=== PATIENT | male | born 1940 | race Caucasian/White ===

== ENCOUNTER 2016-10-23 13:57 | Inpatient (IN) | payer MEDICARE ==
--- NOTE | ~2016-10-23 | DS ---
Discharge Summary [facility] [address] [place]. [address] NAME: HERMELINDA BOWDEN : 38 STATUS : DIS IN PAT#: [id number] AGE: 76 ADM/REG DATE : 10/23/16 MR#: [id number] REPORT SERV DATE: 10/28/16 DICTATED BY: CARTER TILLMAN DATE: 10/27/16 REPORT STATUS : Draft TRANSCRIBED BY: MODL DATE: 10/27/16 ADMISSION DATE: 10/23/2016 DISCHARGE DATE: 10/27/2016 DISCHARGE DIAGNOSES: 1. Atrial fibrillation with rapid ventricular response, currently stable. 2. Acute exacerbation of chronic obstructive pulmonary disease. 3. Acute hypoxic respiratory failure, present on admission, on chronic hypoxic respiratory failure. 4. History of non-small cell lung cancer. 5. History of monoclonal gammopathy of unknown significance. 6. Gastroesophageal reflux. 7. Prostate cancer, status post radiation therapy. 8. Hypertension. 9. Restless leg syndrome. CONSULTANTS DURING THIS HOSPITALIZATION: Dr. Alex Hunt of [facility] Cardiology with Dr. Kavon Hensley. INVASIVE PROCEDURES DONE DURING THIS HOSPITALIZATION: None. BRIEF HISTORY OF PRESENT ILLNESS: The patient is a 76-year-old male, presented with cough productive sputum, increasing shortness of breath for six days, so he was admitted. For detailed history and physical exam, please see note dictated by Dr. Payton Rivera on 10/23/2016. HOSPITAL COURSE: After being admitted to the hospital, this patient was given aggressive nebulizing treatments thinking that he may have pneumonia. He was given broad-spectrum antibiotics. Dr. Coronado followed the patient in followup. He was noted to have atrial fibrillation with rapid ventricular response. Cardiology saw the patient in consultation. Two-dimensional echocardiogram was done. No evidence of any significant valvular disease or atrial enlargement was noted. He had a normal ejection fraction. He was placed on p.o. Lopressor and his Cardizem was continued. Anticoagulation was recommended because of [id number] score of 5. This patient has been placed on Coumadin. Dr. Hensley has signed off his care and recommended that he can continue Coumadin and follow up in the outpatient setting. This patient's COPD has significantly improved and his hypoxia is now at baseline. He feels well enough that he could be discharged in the home setting. DISCHARGE DISPOSITION: Home. DISCHARGE ACTIVITY: As tolerated. DISCHARGE DIET: Low sodium diet. DISCHARGE MEDICATIONS: Aspirin 81 mg once daily, vitamin B12 of 5000 mcg once daily, Zantac 300 mg once at bedtime, diltiazem 180 mg CD once daily, warfarin 5 mg once daily, prednisone Discharge Summary [address] [place]. [address] NAME: HERMELINDA BOWDEN : 39 STATUS : DIS IN PAT#: [id number] AGE: 76 ADM/REG DATE : 10/23/16 MR#: [id number] REPORT SERV DATE: 10/28/16 DICTATED BY: CARTER TILLMAN DATE: 10/27/16 REPORT STATUS : Draft TRANSCRIBED BY: REGINA DATE: 10/27/16 40 mg p.o. once daily for five days, Metamucil 15 mL p.o. daily and p.r.n. for constipation, Spiriva one capsule inhalation once at bedtime, Breo Ellipta one puff every morning, DuoNebs one neb twice daily, MD Nicholas suspension as needed, hydrocodone 10/325 one tablet daily p.r.n., albuterol two puffs up to six times daily p.r.n., Rhinocort nasal spray one spray each nostril twice daily p.r.n., artificial tears one drop, hormone injection one dose IM every 180 days, i.e., Lupron for prostate cancer, analgesic patch for the forehead. DISCHARGE FOLLOWUP: With Dr. Nilay Harp in two days for repeat PT/INR and adjustment of Coumadin. Follow up with Dr. Kavon Hensley at [facility] in about one month. More than 30 minutes spent planning this patient's discharge, reconciling medications, writing prescriptions, discussing hospital care, followup with the patient, and documenting this discharge. DICTATED BY: Ashley Martinez/REGINA Carter Tillman M.D. / [id number] CC: Ashley Martinez M.D. William Oellerich, M.D., Ph.D, F.A.C.C.
--- NOTE | ~2016-10-23 | HP ---
History And Physical [facility] [address] [facility] [place]. [address] NAME: HERMELINDA BOWDEN : 39 STATUS : ADM IN [facility]#: [id number] AGE: 76 ADM/REG DATE : 10/23/16 MR#: [id number] REPORT SERV DATE: 10/23/16 DICTATED BY: PAYTON CHUNG DATE: 10/23/16 REPORT STATUS : Draft TRANSCRIBED BY: MODL DATE: 10/23/16 DATE OF ADMISSION: 10/23/2016 CHIEF COMPLAINT: Cough, productive sputum, increasing shortness of breath for six days. HISTORY OF PRESENT ILLNESS: This is a very pleasant 76-year-old gentleman. He does have a history of non-small cell lung cancer of the right upper lobe with radiation treatment. Prior radiation treatment about two years ago. Currently, on no radiation. Also, history of prostate cancer, recurrent right now currently on hormone treatment. He does have a history of hypertension, history of GERD with prior Mela fundoplication, history of restless legs syndrome, history of bronchitis, and prior history of pneumonia, presenting today to [facility] after he has been sent from a Walk-In Clinic, where he went today with mainly complains of shortness of breath. According to the patient, the symptoms have been started about six days ago. He saw his primary care provider, Dr. Nilay Harp, who gave him a steroid short and put him on Levaquin, but symptoms has not improved. Actually, he takes azithromycin every other day per Dr. Gilliam recommendation like a prevention for bronchitis and also nebulizer treatment, but this did not help him. His shortness of breath got still persistent and more so over the last few days, and as a result, he presented today to a Walk-In Clinic, where he was told that he has pneumonia and he has been referred to [facility]. It is important to note that he has COPD and he says asthma, but he has not had pneumonia recently. He has been seen by Dr. Hensley in the past. It is unclear why he said that he had a cardiac workup with negative stress test. He admits that he had some productive yellowish sputum. No hemoptysis. He did not have any PND or orthopnea. He did not experience any palpitations and no abdominal pain. No nausea or vomiting. No diarrhea or constipation. No increased urinary frequency or urgency. No other complaints. The patient has been evaluated in the emergency room and Hospitalist Service has been asked for admission, further evaluation, and treatment. PAST MEDICAL HISTORY: Significant with COPD; emphysema; asthma; non-small cell lung cancer of the right upper lobe, status post radiation treatment; history of hypertension; prostate cancer, recurrent; GERD with Mela fundoplication; restless legs syndrome; degenerative joint disease and osteoarthritis; prior history of hematochezia. PAST SURGICAL HISTORY: Include right thumb surgery, Mela fundoplication, left total knee replacement, C-spine surgery, carpal tunnel release, bilateral ankle surgery, cholecystectomy. SOCIAL HISTORY: He is . He does not smoke. He used to smoke two packs a day for more than 30 years, but he quit over 20 years ago. Alcohol, occasional. No IV drugs. FAMILY HISTORY: Significant for cancer. He is allergic to penicillin, sulfa, and tetracycline. MEDICATIONS: At home include DuoNeb, Ventolin, Artificial Tears, aspirin, Zithromax every other day, vitamin B12, Breo Ellipta, Louann, Motrin, Levaquin, Singulair, multivitamin, Protonix, Metamucil, Zantac, Spiriva, hormone injection, and analgesic History And Physical [address] [address] NAME: HERMELINDA BOWDEN : 38 STATUS : ADM IN [facility]#: [id number] AGE: 76 ADM/REG DATE : 10/23/16 MR#: [id number] REPORT SERV DATE: 10/23/16 DICTATED BY: PAYTON CHUNG DATE: 10/23/16 REPORT STATUS : Draft TRANSCRIBED BY: MODL DATE: 10/23/16 [id number]. REVIEW OF SYSTEMS: A 14-point review of systems has been obtained and pertinent positive has been listed into the history of present illness. Otherwise, negative except those underlying above. PHYSICAL EXAMINATION: VITAL SIGNS: Currently, the patient is afebrile. Blood pressure 140/79, heart rate on arrival 121, respiratory rate 18, saturating 93% on room air. GENERAL: He is a very pleasant, well-developed, well-nourished gentleman, in no acute distress. Currently, he is alert and oriented x3. Nonfocal. He follows all his commands appropriately. HEENT: Pupils are equal, round, reactive to light. Extraocular movements intact. No JVD. No lymphadenopathy. No thyromegaly appreciated. CHEST: Bilateral air entry. Clear anteroposterior. No wheezes, crackles, or rhonchi appreciated. CARDIOVASCULAR: Irregularly irregular. S1, S2 positive. No S3, no S4. No murmurs, rubs, or gallops appreciated. ABDOMEN: Soft. Positive bowel sounds. Nontender. No guarding. No rebound. EXTREMITIES: No clubbing, cyanosis, or edema. NEUROLOGIC: He is alert and oriented x3. He is nonfocal. He follows all his commands appropriately. LABORATORY DATA: Labs from today include sodium 140, potassium 4.3 chloride 105, CO2 of 30, BUN 20, creatinine 0.91, glucose is 129. His total bilirubin is 0.5, alkaline phosphatase is 74, ALT 34, AST 19. His troponin is less than 0.02. BNP of 122.9. His white count is 7.1, hemoglobin 14.5, hematocrit 45.1, and platelets are 199. His INR is 1. His blood cultures currently are pending. His EKG shows AFib with rapid ventricular response. His chest x-ray, portable, performed in the emergency room shows some chronic changes, some scaring especially on the right. ASSESSMENT: This is a very pleasant, 76-year-old gentleman, presenting with increasing shortness of breath, cough, productive sputum with 1. Likely chronic obstructive pulmonary disease exacerbation. 2. Atrial fibrillation with rapid ventricular response. 3. History of lung cancer, status post radiation treatment in 2014 only. 4. Recurrent prostate cancer. 5. History of gastroesophageal reflux disease. 6. Degenerative joint disease, osteoarthritis. PLAN: 1. The patient is going to be admitted to Hospitalist Service. We are going to place him on oxygen, antibiotics with Rocephin and azithromycin, place him on steroids, nebulizer treatment, Mucinex. We will check a procalcitonin level, sputum Gram stain, and culture. We will get a CAT scan of the chest without contrast in the morning as well. We are going to follow up his blood culture. Continue his Breo Ellipta as well and his Singulair. History And Physical [place] [address] [place]. [address] NAME: HERMELINDA BOWDEN : 39 STATUS : ADM IN PAT#: [id number] AGE: 76 ADM/REG DATE : 10/23/16 MR#: [id number] REPORT SERV DATE: 10/23/16 DICTATED BY: PAYTON CHUNG DATE: 10/23/16 REPORT STATUS : Draft TRANSCRIBED BY: MODL DATE: 10/23/16 2. AFib with RVR. We are going to place him on oral Cardizem as well as Cardizem p.r.n., heparin drip. We are going to check 2D echo. Rule him out for NC by serial cardiac enzymes, serial EKGs, and consult Dr. Hensley per patient and family request. 3. Hypertension. We are going to continue Cardizem, provide p.r.n. hydralazine as needed. 4. History of lung cancer. We are going to check CT of the chest without contrast in the morning and continue to treat his COPD exacerbation. 5. History of GERD. We are going to continue his home medications. 6. Degenerative joint disease, osteoarthritis. We are going to continue his home medication. Also, we are going to provide reasonable pain, nausea control as well as GI and DVT prophylaxis with SCDs that has been discussed extensively with the patient as well as the patient's . All the questions have been answered in full. Further workup and recommendation pending above. It is worthwhile to note that the patient is going to be followed up by Hospitalist Service. CF/RADHAL Payton Chung M.D. / [id number] CC: Ashley Clark M.D.
--- NOTE | ~2016-10-23 | CN ---
Consultation Report [place] [id number] [facility] [place]. [address] NAME: HERMELINDA DECKER : 39 STATUS : ADM IN PAT#: [id number] AGE: 76 ADM/REG DATE : 10/23/16 MR#: [id number] REPORT SERV DATE: 10/23/16 DICTATED BY: ALEX BUTCHER DATE: 10/23/16 REPORT STATUS : Draft TRANSCRIBED BY: MODL DATE: 10/23/16 CARDIOLOGY CONSULT DATE OF CONSULTATION: 10/23/2016 PRIMARY MULTIPLE SLIDE OPERATOR: The patient's primary liquefaction plant operator is Dr. Hensley. CONSULTATION REASON: Atrial fibrillation. HISTORY OF PRESENT ILLNESS: Mr. Decker is a 76-year-old male with severe COPD and a history of treated right upper lobe lung cancer who has had community-acquired pneumonia for the past six to seven days and has been failing outpatient oral Levaquin with persistent shortness of breath, cough, and fatigue. He presented to the ED for further evaluation where he was noted to be in atrial fibrillation with rapid ventricular response and a heart rate of 110 beats per minute. He was given medicines for acute exacerbation of COPD and admitted to the Hospitalist Service. He has had no symptoms of chest pain or angina. He denies palpitations or syncope. He has had no orthopnea or edema. He is now resting comfortably with no complaints. REVIEW OF SYSTEMS: Pertinent positives and negatives as outlined above, all else negative. PAST MEDICAL HISTORY: 1. COPD, severe. 2. History of lung cancer, treated with XRT and chemotherapy. 3. History of atypical chest pain, negative dobutamine stress test, October 2014. 4. History of TIA. CURRENT HOME MEDICATIONS: Include, 1. DuoNeb as directed. 2. Albuterol inhaler as directed. 3. Aspirin 81 mg daily. 4. Levaquin for the past six days. 5. Zithromax for the past six days. 6. B12 supplementation. 7. Breo Ellipta inhaler as directed. 8. [place] as directed. 9. Singulair 10 mg daily. 10.Multivitamin daily. 11.Protonix 40 mg twice daily. 12.Fiber supplementation. 13.Zantac 300 mg at bedtime. 14.Spiriva inhaler as directed. Consultation Report [place] [id number] [facility] [place]. [address] NAME: HERMELINDA DECKER : 38 STATUS : ADM IN PAT#: [id number] AGE: 76 ADM/REG DATE : 10/23/16 MR#: [id number] REPORT SERV DATE: 10/23/16 DICTATED BY: ALEX BUTCHER DATE: 10/23/16 REPORT STATUS : Draft TRANSCRIBED BY: REGINA DATE: 10/23/16 ALLERGIES: INCLUDE PENICILLIN WHICH CAUSES HIVES AND SULFA THAT CAUSES HIVES. SOCIAL HISTORY: He does not use consume alcohol or use illegal drugs. He has remote history of tobacco use, but quit many years ago. FAMILY HISTORY: No significant family history of premature CAD or sudden . PHYSICAL EXAMINATION: VITALS: Temp is afebrile. Pulse 100. Respirations 16. BP is 140/80. GENERAL: Well-developed, chronically ill-appearing male, who is now currently in no acute distress. HEENT: Sclerae anicteric, mucous membranes moist and without lesions. NECK: No jugular venous distention. No hepatojugular reflux, carotid upstrokes 2+ and symmetric, there are no carotid or subclavian bruit. LUNGS: Severely decreased breath sounds throughout with diffuse expiratory wheezes. CARDIOVASCULAR: Irregularly irregular with distant S1 and S2. No audible S3. No audible murmurs. No parasternal lift. PMI is not palpable. ABDOMEN: Soft, nontender. Bowel sounds are positive and normoactive. PULSES: Radial and dorsalis pedis pulses are 2+ and symmetric. EXTREMITIES: Warm and there is no edema. SKIN: No clubbing or cyanosis, no rashes or lesions. ACCESSORY DATA: ECG on arrival, with atrial fibrillation rapid ventricular response at 112 beats per minute. No ST abnormalities seen. Initial labs with a creatinine of 0.9. Negative troponin. BNP nonspecific at 120. IMPRESSION: 1. Atrial fibrillation with rapid ventricular response. 2. History of transient ischemic attack. 3. Acute exacerbation of severe chronic obstructive pulmonary disease. 4. Community-acquired pneumonia, feeling outpatient antibiotics. 5. History of lung cancer, status post treatment. 6. History of chest pain with negative stress test, 2015. PLAN: 1. Oral Cardizem for rate control. 2. Eliquis for CVA prophylaxis. 3. Echocardiogram to reassess cardiac dimensions and function. No recommendation for aggressive rhythm control at this time. We will watch rate and rhythm on medical therapy as COPD exacerbation is treated. He is otherwise asymptomatic with respect to atrial fibrillation. Consultation Report [place] [id number] [facility] [place]. [address] NAME: HERMELINDA DECKER : 39 STATUS : ADM IN PAT#: [id number] AGE: 76 ADM/REG DATE : 10/23/16 MR#: [id number] REPORT SERV DATE: 10/23/16 DICTATED BY: ALEX BUTCHER DATE: 10/23/16 REPORT STATUS : Draft TRANSCRIBED BY: REGINA DATE: 10/23/16 AEA/REGINA Alex Butcher M.D. / [id number] CC: Ashley Clark M.D.
[~2016-10-23 13:57] MED LIST: ADVAIR DISKUS PO; ADVAIR INH; AMB10 PO; ASAB PO; CYANO1000T PO; DUONEB INH; FISH-EPA1000 MG PO; FLOMAX4 PO; HORMONE INJECTION; IBU800 PO; KLONO1 PO; LOP25 PO; LUPRON DEPOT30 MG IM; MOBIC15 MG PO; MULTIVIT/MIN PO; NATURA2 OP; NEXIUM20 M1 PO; OCEAN NAS; PRILO PO; SPIRIVA INH; SPIRIVA RESPIMAT INH; THERGRANM PO; VITAMIN D31000 UNIT PO; ZITHROMAX500 MG PO
[2016-10-23 14:57] LABS: BASOPHILS 0.1 %; BASOPHILS ABSOLUTE 0.01 10/3/uL (0.0-0.16); EOSINOPHILS 0 %; ER CBC TAT 0 Hrs 07 Mins; HEMATOCRIT 45.1 % (40.0-51.0); HEMOGLOBIN 14.5 g/dL (13.6-17.8); IMMATURE GRANULOCYTES 0.6 %; IMMATURE GRANULOCYTES ABSOLUTE 0.04 10/3/uL (0.0-0.11); MANUAL DIFF NO %; MEAN CORPUS HGB CONC 32.2 g/dL (32.0-36.0); MEAN CORPUSCULAR HEMOGLOB 30.3 pg (26.0-34.0); MEAN CORPUSCULAR VOLUME 94.2 fL (80-100); MEAN PLATELET VOLUME 10.1 fL (9.2-13.0); MONOCYTES 5.9 %; MONOCYTES ABSOLUTE 0.42 10/3/uL (0.21-1.20); NEUTROPHILS 86.4 %; NEUTROPHILS ABSOLUTE 6.14 10/3/uL (2.02-8.40); PLATELET COUNT 199 10/3/uL (150-400); RBC DISTRIBUTION WIDTH 15.2 % (12.0-16.0); RED CELL COUNT 4.79 10/6/uL (4.7-6.1); WHITE BLOOD CELLS 7.1 10/3/uL (4.5-10.5)
[2016-10-23] MEDS ORDERED: ZITHROMAX500 MG PO (15:02)
[2016-10-23] MEDS ORDERED: ZANTAC300 MG PO (15:03)
[2016-10-23] MEDS ORDERED: LEVAQUIN5T PO (15:03)
[2016-10-23] MEDS ORDERED: PROTONIX PO (15:04)
[2016-10-23 15:05] LABS: INTERNATIONAL NORMAL RATI 1.1 UNITS (-); PARTIAL THROMBO TIME 23.5 SEC (22.5-37.2); PROTIME (NOT ORD) 14.3 SEC (12.0-14.5)
[2016-10-23] MEDS ORDERED: IBU800 PO (15:05)
[2016-10-23] MEDS ORDERED: DUONEB INH (15:05)
[2016-10-23] MEDS ORDERED: BREO ELLIPTA 21 EACH INH (15:05)
[2016-10-23] MEDS ORDERED: ANDERSON PO (15:08)
[2016-10-23] MEDS ORDERED: SINGULAIR1 PO (15:08)
[2016-10-23] MEDS ORDERED: SPIRIVA INH (15:09)
[2016-10-23] MEDS ORDERED: VITAMIN B-122500 MCG PO (15:09)
[2016-10-23] MEDS ORDERED: NORCO1 TAB PO (15:10)
[2016-10-23] MEDS ORDERED: ASAB PO (15:11)
[2016-10-23] MEDS ORDERED: METAMUCIL CAN7 OZ PO ×2 (15:11→15:12)
[2016-10-23] MEDS ORDERED: VENTOLIN HFA INH (15:13)
[2016-10-23 15:14] LABS: A/G RATIO 1.2 (0.7-1.9); ALBUMIN 3.5 G/DL (3.5-5.0); ALKALINE PHOSPHATASE 74 U/L (45-117); BUN (BLOOD UREA NITROGEN) 20 MG/DL (6-23); CALCIUM, SERUM 8.8 MG/DL (8.5-10.4); CHLORIDE, SERUM 105 MMOL/L (96-112); CO2 (CARBON DIOXIDE) 30 MMOL/L (24-34); CREATININE 0.91 MG/DL (0.70-1.30); GFR AFRICAN AMERICAN 94 ML/MIN (>=60); GFR NON AFRICAN AMERICAN 81 ML/MIN (>=60); GLOBULIN 2.9 G/DL (2.5-4.1); GLUCOSE, SERUM 129 MG/DL (60-99); POTASSIUM, SERUM 4.3 MMOL/L (3.5-5.3); SGOT(AST) 19 U/L (5-40); SGPT(ALT) 34 U/L (5-65); SODIUM, SERUM 140 MMOL/L (135-148); TOTAL BILIRUBIN 0.5 MG/DL (0-1.2); TOTAL PROTEIN 6.4 G/DL (6.0-8.5); TROPONIN I <0.02 NG/ML (<0.05)
[2016-10-23] MEDS ORDERED: RHINOCORT NASAL NAS (15:15)
[2016-10-23] MEDS ORDERED: HORMONE INJECTION IM (15:16)
[2016-10-23] MEDS ORDERED: REFRESH OPH (15:16)
[2016-10-23 15:18] LABS: B NATRIURETIC PEPTIDE (BNP) 122.9 PG/ML (< 100.0)
[2016-10-23] MEDS ORDERED: MULTIVIT/MIN PO (15:19)
[2016-10-23] MEDS ORDERED: ANALGESIC TOP (15:19)
[2016-10-23 15:42] LABS: PROCALCITONIN 0.07 ng/mL (<0.5)
[2016-10-23 18:46] LABS: CK-MB 6.8 NG/ML; CPK 122 U/L (0-200); FREE T4 1.13 NG/DL (0.76-1.46); PHOSPHORUS, SERUM 2.9 MG/DL (2.5-4.5)
[2016-10-23 18:48] LABS: CKMB INDEX (NOT ORD) 5.6; ULTRASENSITIVE TSH 0.432 MCIU/ML (0.358-3.740)
[2016-10-23 21:30] LABS: CK-MB 5.6 NG/ML; CKMB INDEX (NOT ORD) 5.1; CPK 110 U/L (0-200); TROPONIN I <0.02 NG/ML (<0.05)
[2016-10-24 02:14] LABS: BASOPHILS 0.3 %; BASOPHILS ABSOLUTE 0.02 10/3/uL (0.0-0.16); EOSINOPHILS 0.4 %; EOSINOPHILS ABSOLUTE 0.03 10/3/uL (0.0-0.53); HEMOGLOBIN 15.3 g/dL (13.6-17.8); IMMATURE GRANULOCYTES 0.5 %; IMMATURE GRANULOCYTES ABSOLUTE 0.04 10/3/uL (0.0-0.11); LYMPHOCYTES 11.6 %; LYMPHOCYTES ABSOLUTE 0.87 10/3/uL (0.67-4.30); MEAN CORPUS HGB CONC 33.3 g/dL (32.0-36.0); MEAN CORPUSCULAR HEMOGLOB 31.1 pg (26.0-34.0); MEAN CORPUSCULAR VOLUME 93.5 fL (80-100); MEAN PLATELET VOLUME 10.3 fL (9.2-13.0); NEUTROPHILS 83.2 %; NEUTROPHILS ABSOLUTE 6.27 10/3/uL (2.02-8.40); PLATELET COUNT 200 10/3/uL (150-400); RBC DISTRIBUTION WIDTH 15.1 % (12.0-16.0); RED CELL COUNT 4.92 10/6/uL (4.7-6.1); WHITE BLOOD CELLS 7.5 10/3/uL (4.5-10.5)
[2016-10-24 02:15] LABS: MANUAL DIFF NO %
[2016-10-24 02:34] LABS: A/G RATIO 1.3 (0.7-1.9); ALBUMIN 3.5 G/DL (3.5-5.0); ALKALINE PHOSPHATASE 72 U/L (45-117); BUN (BLOOD UREA NITROGEN) 19 MG/DL (6-23); CALCIUM, SERUM 8.8 MG/DL (8.5-10.4); CHLORIDE, SERUM 104 MMOL/L (96-112); CO2 (CARBON DIOXIDE) 28 MMOL/L (24-34); CREATININE 0.95 MG/DL (0.70-1.30); GFR AFRICAN AMERICAN 89 ML/MIN (>=60); GFR NON AFRICAN AMERICAN 77 ML/MIN (>=60); GLOBULIN 2.8 G/DL (2.5-4.1); GLUCOSE, SERUM 126 MG/DL (60-99); POTASSIUM, SERUM 4.1 MMOL/L (3.5-5.3); SGOT(AST) 19 U/L (5-40); SGPT(ALT) 33 U/L (5-65); SODIUM, SERUM 139 MMOL/L (135-148); TOTAL BILIRUBIN 0.4 MG/DL (0-1.2); TOTAL PROTEIN 6.3 G/DL (6.0-8.5); TROPONIN I <0.02 NG/ML (<0.05)
[2016-10-24 02:36] LABS: CK-MB 4.1 NG/ML; CPK 82 U/L (0-200)
[2016-10-25 03:48] LABS: BASOPHILS 0.1 %; BASOPHILS ABSOLUTE 0.01 10/3/uL (0.0-0.16); EOSINOPHILS 0.1 %; EOSINOPHILS ABSOLUTE 0.01 10/3/uL (0.0-0.53); HEMATOCRIT 44.1 % (40.0-51.0); HEMOGLOBIN 14.9 g/dL (13.6-17.8); IMMATURE GRANULOCYTES 0.4 %; IMMATURE GRANULOCYTES ABSOLUTE 0.05 10/3/uL (0.0-0.11); LYMPHOCYTES ABSOLUTE 0.93 10/3/uL (0.67-4.30); MEAN CORPUS HGB CONC 33.8 g/dL (32.0-36.0); MEAN CORPUSCULAR HEMOGLOB 31.4 pg (26.0-34.0); MEAN PLATELET VOLUME 10.2 fL (9.2-13.0); MONOCYTES 7.5 %; NEUTROPHILS 84.9 %; NEUTROPHILS ABSOLUTE 11.31 10/3/uL (2.02-8.40); PLATELET COUNT 200 10/3/uL (150-400); RBC DISTRIBUTION WIDTH 15.4 % (12.0-16.0); RED CELL COUNT 4.74 10/6/uL (4.7-6.1)
[2016-10-25 03:56] LABS: MANUAL DIFF NO %; WHITE BLOOD CELLS 13.3 10/3/uL (4.5-10.5)
[2016-10-25 03:59] LABS: BUN (BLOOD UREA NITROGEN) 19 MG/DL (6-23); CALCIUM, SERUM 8.7 MG/DL (8.5-10.4); CHLORIDE, SERUM 104 MMOL/L (96-112); CO2 (CARBON DIOXIDE) 26 MMOL/L (24-34); CREATININE 0.92 MG/DL (0.70-1.30); GFR AFRICAN AMERICAN 93 ML/MIN (>=60); GFR NON AFRICAN AMERICAN 80 ML/MIN (>=60); GLUCOSE, SERUM 138 MG/DL (60-99); POTASSIUM, SERUM 3.9 MMOL/L (3.5-5.3); SODIUM, SERUM 138 MMOL/L (135-148)
[2016-10-26 04:30] LABS: CHLORIDE, SERUM 106 MMOL/L (96-112); CO2 (CARBON DIOXIDE) 28 MMOL/L (24-34); POTASSIUM, SERUM 3.9 MMOL/L (3.5-5.3); SODIUM, SERUM 139 MMOL/L (135-148); TROPONIN I <0.02 NG/ML (<0.05)
[2016-10-27 05:01] LABS: BASOPHILS 0 %; EOSINOPHILS 0.1 %; EOSINOPHILS ABSOLUTE 0.01 10/3/uL (0.0-0.53); HEMATOCRIT 44.3 % (40.0-51.0); HEMOGLOBIN 14.8 g/dL (13.6-17.8); IMMATURE GRANULOCYTES 0.6 %; IMMATURE GRANULOCYTES ABSOLUTE 0.07 10/3/uL (0.0-0.11); LYMPHOCYTES 11.5 %; LYMPHOCYTES ABSOLUTE 1.25 10/3/uL (0.67-4.30); MANUAL DIFF NO %; MEAN CORPUS HGB CONC 33.4 g/dL (32.0-36.0); MEAN CORPUSCULAR HEMOGLOB 31.2 pg (26.0-34.0); MEAN CORPUSCULAR VOLUME 93.5 fL (80-100); MEAN PLATELET VOLUME 10.2 fL (9.2-13.0); MONOCYTES 9.3 %; MONOCYTES ABSOLUTE 1.01 10/3/uL (0.21-1.20); NEUTROPHILS 78.5 %; NEUTROPHILS ABSOLUTE 8.56 10/3/uL (2.02-8.40); PLATELET COUNT 203 10/3/uL (150-400); RBC DISTRIBUTION WIDTH 15.2 % (12.0-16.0); RED CELL COUNT 4.74 10/6/uL (4.7-6.1); WHITE BLOOD CELLS 10.9 10/3/uL (4.5-10.5)
[2016-10-27 05:03] LABS: INTERNATIONAL NORMAL RATI 1.3 UNITS (-)
[2016-10-27 05:05] LABS: PROTIME (NOT ORD) 16.5 SEC (12.0-14.5)
[2016-10-27 05:16] LABS: BUN (BLOOD UREA NITROGEN) 16 MG/DL (6-23); CALCIUM, SERUM 8.3 MG/DL (8.5-10.4); CHLORIDE, SERUM 107 MMOL/L (96-112); CO2 (CARBON DIOXIDE) 26 MMOL/L (24-34); CREATININE 0.76 MG/DL (0.70-1.30); GFR AFRICAN AMERICAN 102 ML/MIN (>=60); GFR NON AFRICAN AMERICAN 88 ML/MIN (>=60); PHOSPHORUS, SERUM 2.6 MG/DL (2.5-4.5); POTASSIUM, SERUM 3.7 MMOL/L (3.5-5.3); SODIUM, SERUM 141 MMOL/L (135-148)
[2016-10-27 05:18] LABS: GLUCOSE, SERUM 85 MG/DL (60-99)
[2016-10-27] MEDS ORDERED: CARDCD120 PO (09:19)
[2016-10-27] MEDS ORDERED: GGEXPUD PO (09:21)
[2016-10-27] MEDS ORDERED: C5 PO (09:24)
[2016-10-27] MEDS ORDERED: P20 PO (09:25)
[2016-10-27] MEDS ORDERED: LOP25 PO (09:26)
== END 2016-10-27 11:38 | disposition home or self-care (01) | DRG 189 ==
LOC: ER 13:57 → 6NO 16:33
PROVIDERS: Emergency Medicine; Hospitalist; Internal Medicine; Internal Medicine Cardiovascular Disease
DX: J96.21 Acute and chronic respiratory failure with hypoxia (principal); J18.9 Pneumonia, unspecified organism; I48.1 Persistent atrial fibrillation; J44.0 Chronic obstructive pulmonary disease with (acute) lower respiratory infection; C61 Malignant neoplasm of prostate; D47.2 Monoclonal gammopathy; J44.1 Chronic obstructive pulmonary disease with (acute) exacerbation; I10 Essential (primary) hypertension; G25.81 Restless legs syndrome; K21.9 Gastro-esophageal reflux disease without esophagitis; M19.90 Unspecified osteoarthritis, unspecified site; Z79.82 Long term (current) use of aspirin; Z79.01 Long term (current) use of anticoagulants; Z92.3 Personal history of irradiation; Z86.73 Personal history of transient ischemic attack (TIA), and cerebral infarction without residual deficits; Z85.118 Personal history of other malignant neoplasm of bronchus and lung; Z88.0 Allergy status to penicillin; Z88.2 Allergy status to sulfonamides; Z87.891 Personal history of nicotine dependence; Z87.01 Personal history of pneumonia (recurrent)
CPT/HCPCS: 71010; 71250; 80048; 80051; 80053; 80069; 82550; 82553; 83036; 83605; 83615; 83735; 83880; 84100; 84145; 84439; 84443; 84484; 85025; 85610; 85730; 87040; 93005; 93306; 94640; 96365; 96375; 99285; A9270-GY; J0456; J2930